=== PATIENT | female | born 1955 | race Caucasian/White ===

== ENCOUNTER 2021-01-28 11:48 | Outpatient (CLI) | payer MEDICARE, BC | END 2021-01-28 11:49 | disposition home or self-care (01) | LOC: BICRAD 11:48 | PROVIDERS: ATTEND Internal Medicine Rheumatology | DX: M54.5 Low back pain (principal); M16.0 Bilateral primary osteoarthritis of hip; M47.817 Spondylosis without myelopathy or radiculopathy, lumbosacral region | CPT/HCPCS: 72100; 73523 ==

== ENCOUNTER 2021-07-24 14:17 | Outpatient (CLI) | payer MEDICARE, BC | END 2021-07-24 14:18 | disposition home or self-care (01) | LOC: BICRAD 14:17 | PROVIDERS: ATTEND Internal Medicine Rheumatology | DX: M54.5 Low back pain (principal) | CPT/HCPCS: 72170 ==

== ENCOUNTER 2024-06-02 08:53 | Inpatient (IN) | payer BC, MEDICARE ==
[2024-06-02] MEDS ORDERED: Acetaminophen 500 MG TAB PO PRN (10:16)
[2024-06-02 10:28] LABS: Anion Gap 14 mmol/L (10-20); BUN (Urea Nitrogen) 11 mg/dL (9.8-20.1); Calc. Creatinine Clearance 0 mL/min (70-130); Calcium 8.9 mg/dL (7.8-10.44); Carbon Dioxide 22 mmol/L (23-31); Chloride 109 mmol/L (98-107); Estimated GFR 88; Glucose 78 mg/dL (80-115); Potassium 4.1 mmol/L (3.5-5.1); Sodium 141 mmol/L (136-145)
[2024-06-02] MEDS ORDERED: Acetaminophen 500 MG TAB PO SCH (10:30)
[2024-06-02 13:34] VITALS: BP 125/76; TEMP 98.3
[2024-06-02 13:35] VITALS: BMI 21.2
== END 2024-06-02 11:40 | disposition home or self-care (01) | DRG 87 ==
LOC: SURG A 08:55
PROVIDERS: ADMIT Specialist; ATTEND Specialist
DX: S06.5X0A Traumatic subdural hemorrhage without loss of consciousness, initial encounter (principal); S00.03XA Contusion of scalp, initial encounter; E11.9 Type 2 diabetes mellitus without complications; W19.XXXA Unspecified fall, initial encounter; R40.2413 Glasgow coma scale score 13-15, at hospital admission; M06.9 Rheumatoid arthritis, unspecified; E78.00 Pure hypercholesterolemia, unspecified
CPT/HCPCS: 36416; 70450; 80048